=== PATIENT | female | born 2000 | race Caucasian/White ===

== ENCOUNTER 2020-01-25 13:50 | Outpatient (CLI) | payer OTHER ==
--- NOTE | 2020-01-27 11:21 | EEG ---
DATE OF SERVICE: 01/26/2020 DESCRIPTION OF THE RECORD: The waking background is a medium amplitude 10 hertz alpha frequency. The patient remained awake throughout the study. Photic stimulation and hyperventilation were unremarkable. No epileptiform features were seen. IMPRESSION: This is a normal awake EEG. Job ID: [id number]
== END 2020-01-25 13:51 | disposition home or self-care (01) ==
LOC: EEG 13:50
PROVIDERS: ATTEND Nurse Practitioner Acute Care
DX: R56.9 Unspecified convulsions (principal)
CPT/HCPCS: 95816